=== PATIENT | female | born 1965 | race Caucasian/White ===

== ENCOUNTER → 2016-07-21 | Outpatient (CLI) | payer OTHER ==
[~2016-07-21] MED LIST: ASPI-COR81 MG PO; LIPITOR80 MG PO; LISINOPRIL2.5 MG PO; PLAVIX75 MG PO
== END ==
LOC: RAD 16:49
DX: Z12.31 Encounter for screening mammogram for malignant neoplasm of breast (principal)
CPT/HCPCS: G0202